=== PATIENT | female | born 1990 | race African-American/Black ===

== ENCOUNTER 2016-07-25 20:19 | Emergency (ER) | payer BC, OTHER ==
[~2016-07-25] VITALS: Ht 162.6 cm; Wt 90.0 kg
[2016-07-25 20:25] VITALS: Ht 162.6 cm; Wt 90.0 kg
[2016-07-25] MEDS ORDERED: IBUP-1542 PO (21:28)
[2016-07-25 21:39] VITALS: BP 121/72; PULSE 80; RESP 20; TEMP 99
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
[2016-07-25] MEDS ORDERED: IBUPROFEN 600 MG TAB PO ONE (22:00)
== END 2016-07-25 21:39 | disposition home or self-care (01) ==
LOC: FTE 20:19
DX: T21.11XA Burn of first degree of chest wall, initial encounter (principal); J45.909 Unspecified asthma, uncomplicated; X12.XXXA Contact with other hot fluids, initial encounter; Y92.9 Unspecified place or not applicable
CPT/HCPCS: 99283